=== PATIENT | female | born 1985 | race Two or more races ===

== ENCOUNTER 2023-08-05 21:08 | Emergency (ER) | payer OTHER ==
[~2023-08-05] VITALS: Ht 152.4 cm; Wt 154.5 kg
[2023-08-05 22:31] LABS: Basophils # (auto) 0.1 10 ^3/uL (0-0.2); Eosinophils # (auto) 0.1 10 ^3/uL (0-0.8); Monocytes # (auto) 0.5 10 ^3/uL (0-1.3); Red Cell Distribution Width 15.1 % (11.8-14.3)
[2023-08-05 22:32] LABS: Urine Bacteria FEW /hpf (None Seen); Urine Blood Negative /uL (Negative); Urine Clarity Clear (Clear); Urine Color Dark-Yellow (Yellow); Urine Protein, UAD Negative (Negative); Urine Specific Gravity 1.005 (1.001-1.035); Urine Urobilinogen Normal (Negative); Urine WBC <1 /hpf (0 - 5); Urine pH 5.5 (5.0-9.0)
[2023-08-05 22:33] LABS: Basophils % (auto) 0.7 % (0.0-2.0); Eosinophils % (auto) 0.6 % (0.0-7.0); Hematocrit 43.7 % (36.0-46.0); Hemoglobin 14.2 g/dL (12.2-16.2); Lymphocytes # (auto) 2.7 10 ^3/uL (0.4-5.4); Lymphocytes % (auto) 21.7 % (10.0-50.0); Mean Corpuscular Hemoglobin 26.3 pg (28.0-32.0); Mean Corpuscular Hgb Conc. 32.5 g/dL (32.0-36.0); Mean Corpuscular Volume 80.9 fL (80.0-100.0); Monocytes % (auto) 4.3 % (0.0-12.0); Neutrophils # (auto) 9.1 10 ^3/uL (1.6-8.6); Neutrophils % (auto) 72.7 % (37.0-80.0); Red Blood Cells 5.41 10^6/uL (4.0-5.20); White Blood Cell 12.5 10^3/uL (4.4-10.8)
[2023-08-05 22:46] LABS: Alanine Aminotransferase 10 U/L (7-40); Albumin 4.5 g/dL (3.2-4.8); Alkaline Phosphatase 141 U/L (46-116); Anion Gap 8 (5-15); Aspartate Aminotransferase 20 U/L (13-40); BUN/Creatinine Ratio 13.3 (10.0-20.0); Bilirubin, Total 0.5 mg/dL (0.2-1.0); Blood Urea Nitrogen 10 mg/dL (9-23); Calcium 9.4 mg/dL (8.5-10.1); Carbon Dioxide 24 mmol/L (20-30); Chloride 101 mmol/L (98-107); Glucose 105 mg/dL (74-106); Potassium 4.1 mmol/L (3.5-5.1); Sodium 133 mmol/L (136-145); Total Protein 8.2 g/dL (5.7-8.2)
[2023-08-05 23:47] VITALS: TEMP 98.5
[2023-08-05 23:50] VITALS: PULSE 94; RESP 14; O2SAT 96
[2023-08-06] MEDS: cefTRIAXone 1GM/50ML D5W 100 ML IV ONE (00:09)
[2023-08-06] MEDS: MORPHINE SULFATE 4 MG/ML SYR/VIAL IV ONE (00:10)
[2023-08-06] MEDS: ONDANSETRON HCL 4 MG/2 ML VIAL IV ONE (00:10)
[2023-08-06] MEDS: cefTRIAXone 2GM/50ML D5W 50 ML IV ONE (00:11)
[2023-08-06] MEDS: SODIUM CHLORIDE 0.9% 1,000 ML IV ONE (00:11)
[2023-08-06] MEDS ORDERED: ZOFR4T PO (00:51)
[2023-08-06] MEDS ORDERED: NITR-87 PO (00:51)
[2023-08-06] MEDS ORDERED: PHEN-1045 PO (00:51)
[2023-08-06 05:31] VITALS: BP 112/66; PULSE 91; RESP 15; O2SAT 95
== END 2023-08-06 05:30 | disposition home or self-care (01) ==
LOC: ER 21:08 → EEVIPCON 21:08 → ER 08-06 05:30
DX: N39.0 Urinary tract infection, site not specified (principal)
CPT/HCPCS: 36415; 74176; 80053; 81001; 81025; 85025; 96365; 96375; 99285; J0696; J2270; J2405; J7030

== ENCOUNTER 2024-02-28 12:52 | Emergency (ER) | payer OTHER ==
[~2024-02-28] VITALS: Ht 152.4 cm; Wt 155.0 kg
[~2024-02-28 12:52] MED LIST: NITR-87 PO; PHEN-1045 PO; ZOFR4T PO
--- NOTE | 2024-02-28 14:15 | DVH ---
CLINICAL INFORMATION: 38 years old, Female; fall injury. TECHNIQUE: 3 views of the right wrist were obtained. COMPARISON: None FINDINGS: No acute fracture or dislocation. No significant arthropathy. Mild diffuse soft tissue swel ling around the wrist. IMPRESSION: 1. No evidence of acute bony abnormality. 2. Mild soft tissue swelling around the wrist.
[2024-02-28 14:28] VITALS: BP 155/67; PULSE 94; RESP 18; TEMP 98; O2SAT 97
[2024-02-28] MEDS ORDERED: IBUP-1455 PO (14:31)
--- NOTE | 2024-02-28 14:31 | ED.PDOC ---
Musculoskeletal HPI Comments Female presents with a chief complaint of nonradiating right wrist pain after she fell on a treadmill three days ago. Pain rated as moderate and worsens with flexion-extension ulnar and radial deviation Denies numbness tingling to the affected extremity Chief Complaint: Upper Extremity Time Seen by MD: 13:01 Reviewed Notes: Nurses Notes, Medications, Allergies Allergies: Coded Allergies: NO KNOWN ALLERGIES (Unverified , 08/05/23) Home Meds Active Scripts Phenazopyridine HCl (Phenazopyridine Hydrochol) 200 Mg Tab, 1 TAB PO TID for 3 Days, #9 TAB Prov:SANTIAGO LAWRENCEA Q RIB CUTTER 08/06/23 Ondansetron Odt 4MG Tab (ZOFRAN PO) 4 Mg Tb, 1 TAB PO Q8HPRN PRN, #10 TAB as needed for nausea vomiting ODT TAB-DISSOLVE IN MOUTH, THEN SWALLOW Prov:HOWARDNORALDA Q RIB CUTTER 08/06/23 Nitrofurantoin Monohydrate Mac (Macrobid) 100 Mg Cap, 1 TAB PO BID for 10 Days, #20 CAP Prov:SANTIAGO LAWRENCEA Q RIB CUTTER 08/06/23 Information Source: Patient Mode of Arrival: Ambulatory Past Medical History PAST MEDICAL HISTORY: Denies Surgical History: Denies all surgeries [employer]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 All Other Systems: Reviewed and Negative (per hpi) Physical Exam General Appearance: No Apparent Distress, Normal HEENT: Normal ENT Inspection, Pharynx Normal, TMs Normal Neck: Full Range of Motion, Non-Tender, Normal, Normal Inspection Respiratory: Chest Non-Tender, Lungs Clear, No Accessory Muscle Use, No Respiratory Distress, Normal Breath Sounds Cardiovascular: No Edema, No JVD, No Murmur, No Gallop, Normal Peripheral Pulses, Regular Rate/Rhythm Breast Exam: Deferred Gastrointestinal: No Organomegaly, Non Tender, No Pulsatile Mass, Normal Bowel Sounds, Soft Genitalia: Deferred Pelvic: Deferred Rectal: Deferred Extremities: No calf tenderness, Normal capillary refill, Normal inspection, Normal range of motion, Non-tender, No pedal edema Musculoskeletal : Location: Right Extremity Location: Wrist (normal) Apperance: Normal Neurologic: Alert, machine puller II-XII nml as Tested, No Motor Deficits, Normal Affect, Normal Mood, No Sensory Deficits Cerebellar Function: Normal Reflexes: Normal Skin: Dry, Normal Color, Warm Lymphatic: No Adenopathy Was a procedure done? Was a procedure done?: No Differential Diagnosis EXT Differential Diagnosis: Sprain X-Ray, Labs, Meds, VS Vital Signs Date Time Temp Pulse Resp B/P (MAP) Pulse Ox O2 Delivery O2 Flow Rate FiO2 02/28/24 12:58 98.0 94 18 155/67 (96) 97 X-Ray, Labs, Meds, VS Comment History and examination consistent of muscular injury X-rays ordered, read by radiologist and reviewed by me Take IBU 600 w/ food as needed for pain Recommended heat therapy Reviewed RICE management Avoid heavy lifting or strenuous activity Recommended range of motion exercises and limit heavy activity for 1 week If no improvement advised patient to return to the emergency department for follow-up. Discussed possibility of a occult fracture Time of 1ST Reevaluation: 14:30 Reevaluation 1ST: Improved Patient Education/Counseling: Diagnosis Family Education/Counseling: Diagnosis, Treatment Departure 1 Departure Time of Disposition: 14:30 Impression: Primary Impression: Wrist sprain Qualified Codes: S63.501A - Unspecified sprain of right wrist, initial encounter Disposition: HOME / SELF CARE / HOMELESS Condition: Stable e-Prescriptions Ibuprofen Micronized (Ibuprofen) 800 Mg Tab 800 MG PO TID for 10 Days, #30 TAB 0 Refills Prov: MIGDALIA HENDRICKSON NP 02/28/24 Discharged With: Self Critical Care Note Critical Care Time?: No Stability Stability form required: No Heart Score Heart Score: Heart Score Response (Comments) Value History N/A 0 EKG N/A 0 Age N/A 0 Risk Factors N/A 0 Troponin N/A 0 Total 0 MIGDALIA HENDRICKSON NP Feb 28, 2024 14:31
== END 2024-02-28 14:44 | disposition home or self-care (01) ==
LOC: ER 12:52
DX: S63.501A Unspecified sprain of right wrist, initial encounter (principal); W01.0XXA Fall on same level from slipping, tripping and stumbling without subsequent striking against object, initial encounter; Y93.A1 Activity, exercise machines primarily for cardiorespiratory conditioning; Y92.89 Other specified places as the place of occurrence of the external cause; Y99.8 Other external cause status
CPT/HCPCS: 73110